=== PATIENT | female | born 1995 | race Caucasian/White ===

== ENCOUNTER 2017-10-30 20:55 | Emergency (ER) | payer OTHER ==
[2017-10-30 21:03] VITALS: TEMP 97.7
[2017-10-30] MEDS ORDERED: ONDANSETRON 4 MG/2 ML VIAL IVP ONE (21:28)
[2017-10-30] MEDS ORDERED: NS 1,000 ML IV ONE (21:28)
--- NOTE | 2017-10-30 21:30 | EDPHY ---
H & P Stated Complaint: EPIGASTRIC PAIN/VOMITING X 1 Time Seen by Provider: 10/30/17 21:11 HPI/ROS: CHIEF COMPLAINT: Epigastric pain and vomiting HISTORY OF PRESENT ILLNESS: Patient presents to the emergency department with complaints of epigastric pain and vomiting. She was emergency department with her boyfriend who has had several weeks of nausea and vomiting. She had felt well prior to her arrival here. She developed 1 episode of vomiting and epigastric pain. The patient denies any history of abdominal surgery. She denies significant past medical history. She did recently have a mole removed from her breast. REVIEW OF SYSTEMS: A comprehensive 10 point review of systems is otherwise negative aside from elements mentioned in the history of present illness. Source: Patient Exam Limitations: No limitations - Personal History LMP (Females 10-55): 22-28 Days Ago Current Tetanus Diphtheria and Acellular Pertussis (TDAP): Yes Tetanus Vaccine Date: LESS THAN 10 YEARS - Medical/Surgical History Hx Asthma: Yes Hx Chronic Respiratory Disease: No Hx Diabetes: No Hx Cardiac Disease: No Hx Renal Disease: No Hx Cirrhosis: No Hx Alcoholism: No Hx HIV/AIDS: No Hx Splenectomy or Spleen Trauma: No Other PMH: MOLE REMOVAL, SEPTOPLASTY, RHINOPLASTY, TONSIL/ADENOID, LABRIUM REPAIR - Social History Smoking Status: Never smoked - Physical Exam Exam: General Appearance: Alert, no acute distress Eyes: Pupils equal and round no pallor or injection ENT, Mouth: Mucous membranes moist Respiratory: There are no retractions, lungs are clear to auscultation Cardiovascular: Regular rate and rhythm Gastrointestinal: Minimal epigastric tenderness Neurological: A&O, normal motor function, normal sensory exam, normal cranial nerves Skin: Warm and dry, no rashes Musculoskeletal: Neck is supple nontender Extremities: symmetrical, full range of motion Constitutional: Initial Vital Signs Temperature (C) 36.5 C 10/30/17 20:59 Heart Rate 92 10/30/17 20:59 Respiratory Rate 16 10/30/17 20:59 Blood Pressure 124/84 H 10/30/17 20:59 O2 Sat (%) 97 10/30/17 20:59 O2 Delivery Mode Room Air Allergies/Adverse Reactions: tree nut [Nuts] Allergy (Verified 10/30/17 20:58) Home Medications: Medication Instructions Recorded Loestrin 21 1-20 Tablet 10/30/17 Ondansetron Odt [Zofran Odt] 4 mg PO Q4PRN PRN #20 tab 10/30/17 Medical Decision Making ED Course/Re-evaluation: The patient presents the ED with acute epigastric pain, nausea and vomiting. The patient had minimal epigastric tenderness on exam. She had an IV damage. She received a L normal saline 4 mg of IV Zofran for dehydration. The patient had screening laboratories sent. She has a slight leukocytosis presumably secondary to her vomiting. The patient has no evidence of a pancreatitis or hepatitis. I re-evaluated the patient at 10:40 p.m.. Her vomiting has resolved. I find her abdominal examination to be benign without evidence of acute appendicitis. I feel it is reasonable to discharge her with Zofran and instructions to return to see us in 8-12 hours for any ongoing symptoms. - Data Points Laboratory Results: Laboratory Results 10/30/17 21:43 10/30/17 21:43 10/30/17 10/30/17 10/30/17 21:43 21:43 21:43 WBC RBC Hgb Hct MCV MCH MCHC RDW Plt Count MPV Neut % (Auto) Lymph % (Auto) [place] % (Auto) Eos % (Auto) Baso % (Auto) Nucleat RBC Rel Count Absolute Neuts (auto) Absolute Lymphs (auto) Absolute Monos (auto) Absolute Eos (auto) Absolute Basos (auto) Absolute Nucleated RBC Immature Gran % Immature Gran # Carboxyhemoglobin 1.7 % H % (0-1.5) Sodium 141 mEq/L mEq/L (135-145) Potassium 3.9 mEq/L mEq/L (3.5-5.2) Chloride 103 mEq/L mEq/L (97-110) Carbon Dioxide 19 mEq/l L mEq/l (22-31) Anion Gap 19 mEq/L H mEq/L (8-16) BUN 16 mg/dL mg/dL (7-23) Creatinine 0.8 mg/dL mg/dL (0.6-1.0) Estimated GFR > 60 Glucose 81 mg/dL mg/dL (70-100) Calcium 10.2 mg/dL mg/dL (8.5-10.4) Total Bilirubin 0.6 mg/dL mg/dL (0.1-1.4) Conjugated Bilirubin 0.3 mg/dL mg/dL (0.0-0.5) Unconjugated Bilirubin 0.3 mg/dL mg/dL (0.0-1.1) AST 28 IU/L IU/L (14-46) ALT 27 IU/L IU/L (9-52) Alkaline Phosphatase 60 IU/L IU/L (38-126) Total Protein 8.0 g/dL g/dL (6.3-8.2) Albumin 4.7 g/dL g/dL (3.5-5.0) Lipase 58 IU/L IU/L (23-300) Beta HCG, Qual NEGATIVE 10/30/17 21:43 WBC 16.25 10^3/uL H 10^3/uL (3.80-9.50) RBC 4.80 10^6/uL 10^6/uL (4.18-5.33) Hgb 15.1 g/dL g/dL (12.6-16.3) Hct 43.5 % % (38.0-47.0) MCV 90.6 fL fL (81.5-99.8) MCH 31.5 pg pg (27.9-34.1) MCHC 34.7 g/dL g/dL (32.4-36.7) RDW 12.8 % % (11.5-15.2) Plt Count 300 10^3/uL 10^3/uL (150-400) MPV 9.8 fL fL (8.7-11.7) Neut % (Auto) 72.8 % % (39.3-74.2) Lymph % (Auto) 20.3 % % (15.0-45.0) [place] % (Auto) 3.9 % L % (4.5-13.0) Eos % (Auto) 2.2 % % (0.6-7.6) Baso % (Auto) 0.4 % % (0.3-1.7) Nucleat RBC Rel Count 0.0 % % (0.0-0.2) Absolute Neuts (auto) 11.82 10^3/uL H 10^3/uL (1.70-6.50) Absolute Lymphs (auto) 3.30 10^3/uL H 10^3/uL (1.00-3.00) Absolute Monos (auto) 0.63 10^3/uL 10^3/uL (0.30-0.80) Absolute Eos (auto) 0.36 10^3/uL 10^3/uL (0.03-0.40) Absolute Basos (auto) 0.07 10^3/uL 10^3/uL (0.02-0.10) Absolute Nucleated RBC 0.00 10^3/uL 10^3/uL (0-0.01) Immature Gran % 0.4 % % (0.0-1.1) Immature Gran # 0.07 10^3/uL 10^3/uL (0.00-0.10) Carboxyhemoglobin Sodium Potassium Chloride Carbon Dioxide Anion Gap BUN Creatinine Estimated GFR Glucose Calcium Total Bilirubin Conjugated Bilirubin Unconjugated Bilirubin AST ALT Alkaline Phosphatase Total Protein Albumin Lipase Beta HCG, Qual Medications Given: Discontinued Medications Sodium Chloride (Ns) 1,000 mls @ 0 mls/hr IV EDNOW ONE; Wide Open PRN Reason: Protocol Stop: 10/30/17 21:29 Last Admin: 10/30/17 21:40 Dose: 1,000 mls Ondansetron HCl (Zofran) 4 mg IVP EDNOW ONE Stop: 10/30/17 21:29 Last Admin: 10/30/17 21:39 Dose: 4 mg Departure - Departure Disposition: Home, Routine, Self-Care Clinical Impression: Vomiting Condition: Good Instructions: Acute Nausea and Vomiting (ED) Additional Instructions: Sometimes we are unable to diagnose an obvious cause of abdominal pain in the Emergency Department. Based upon our evaluation today, we see no obvious explanation for your pain. Because more serious conditions can be difficult to diagnose early in the course of their presentation, we ask that you return to the Emergency Department in 8-12 hours for a recheck if you are still having pain. This is necessary to exclude the development of a more serious condition such as appendicitis or other intra-abdominal emergency. In the event your pain markedly increases before that time or you develop intractable vomiting or fever return to the Emergency Department immediately. Zofran as needed for nausea Referrals: DR LARRY [Other] - As per Instructions
[2017-10-30 21:49] LABS: PLATELET COUNT 300 10^3/uL (150-400)
[2017-10-30] MEDS ORDERED: ONDANSETRON 4MG PREPACK#2 BTL TAKEHOME ONE (22:41)
[2017-10-30 22:50] VITALS: BP 117/76; PULSE 93; RESP 18; O2SAT 100
[2017-10-31] MEDS ORDERED: ONDANSETRON 4MG PREPACK#2 BTL TAKEHOME ONE (00:55)
== END 2017-10-30 22:49 | disposition home or self-care (01) ==
DX: R11.10 Vomiting, unspecified (principal); E86.9 Volume depletion, unspecified; J45.909 Unspecified asthma, uncomplicated
CPT/HCPCS: 96374; J2405

== ENCOUNTER 2017-12-10 14:57 | Emergency (ER) | payer OTHER ==
[2017-12-10 15:02] VITALS: TEMP 98.2
[2017-12-10] MEDS ORDERED: NS 1,000 ML IV ONE (15:14)
[2017-12-10] MEDS ORDERED: RANITIDINE 50 MG/2 ML VIAL IVP ONE (15:14)
[2017-12-10] MEDS ORDERED: methylPREDNISolone SOD SUCC 125 MG/2 ML VIAL IVP ONE (15:14)
--- NOTE | 2017-12-10 15:17 | EDPHY ---
H & P Stated Complaint: allergic rx Time Seen by Provider: 12/10/17 15:07 HPI/ROS: CHIEF COMPLAINT: Allergic reaction HISTORY OF PRESENT ILLNESS: Patient is a 22-year-old female with multiple allergies including several nuts, mold and dust. She states that she was taking a shower when she became itchy and noticed some swelling of her lips and itchiness in her throat. She took 3 tablets of Benadryl an used her inhaler which her warehouse laborer prescribed her because she tends to wheeze when she has anaphylaxis. She did not use her EpiPen. She came immediately to the emergency department. At triage she was noticed to have red skin and possibly some slight swelling of her lips. She was given Solu-Medrol, epinephrine and Zantac by nursing protocol. She states that she is now beginning to feel better. She denies having any wheezing today. No nausea vomiting or diarrhea. REVIEW OF SYSTEMS: Constitutional: denies: chills, fever, recent illness, recent injury EENTM: See HPI denies: blurred vision, double vision, nose congestion Respiratory: See HPI denies: cough, shortness of breath Cardiac: denies: chest pain, irregular heart rate, lightheadedness, palpitations Gastrointestinal/Abdominal: denies: abdominal pain, diarrhea, nausea, vomiting, blood streaked stools Genitourinary: denies: dysuria, frequency, hematuria, pain Musculoskeletal: denies: joint pain, muscle pain Skin: See HPI Neurological: denies: headache, numbness, paresthesia, tingling, dizziness, weakness Hematologic/Lymphatic: denies: blood clots, easy bleeding, easy bruising Immunologic/allergic: denies: HIV/AIDS, transplant EXAM: GENERAL: Well-appearing, well-nourished and in no acute distress. HEAD: Atraumatic, normocephalic. EYES: Pupils equal round and reactive to light, extraocular movements intact, sclera anicteric, conjunctiva are normal. ENT: No obvious swelling of oropharynx. TMs normal, nares patent, oropharynx clear without exudates. Moist mucous membranes. NECK: Normal range of motion, supple without lymphadenopathy or JVD. LUNGS: Breath sounds clear to auscultation bilaterally and equal. No wheezes rales or rhonchi. HEART: Regular rate and rhythm without murmurs, rubs or gallops. ABDOMEN: Soft, nontender, normoactive bowel sounds. No guarding, no rebound. No masses appreciated. BACK: No CVA tenderness, no spinal tenderness, step-offs or deformities EXTREMITIES: Normal range of motion, no pitting or edema. No clubbing or cyanosis. NEUROLOGICAL: Cranial nerves II through XII grossly intact. Normal speech, normal gait. 5/5 strength, normal movement in all extremities, normal sensation PSYCH: Normal mood, normal affect. SKIN: The sandpapery red skin to chest and arms. No obvious urticaria. Source: Patient Exam Limitations: No limitations - Personal History LMP (Females 10-55): Now Current Tetanus/Diphtheria Vaccine: Yes Tetanus Vaccine Date: LESS THAN 10 YEARS - Medical/Surgical History Hx Asthma: Yes Hx Chronic Respiratory Disease: No Hx Diabetes: No Hx Cardiac Disease: No Hx Renal Disease: No Hx Cirrhosis: No Hx Alcoholism: No Hx HIV/AIDS: No Hx Splenectomy or Spleen Trauma: No Other PMH: Multiple anaphylactic allergies, MOLE REMOVAL, SEPTOPLASTY, RHINOPLASTY, TONSIL/ADENOID, LABRIUM REPAIR - Family History Significant Family History: No pertinent family hx - Social History Smoking Status: Never smoked Alcohol Use: Sober Drug Use: None Constitutional: Initial Vital Signs Temperature (C) 36.8 C 12/10/17 15:00 Heart Rate 133 H 12/10/17 15:00 Respiratory Rate 18 12/10/17 15:00 Blood Pressure 135/82 H 12/10/17 15:00 O2 Sat (%) 96 12/10/17 15:00 O2 Delivery Mode Room Air Allergies/Adverse Reactions: tree nut [Nuts] Allergy (Verified 10/30/17 20:58) Home Medications: Medication Instructions Recorded Loestrin 21 1-20 Tablet 10/30/17 Ondansetron Odt [Zofran Odt] 4 mg PO Q4PRN PRN #20 tab 10/30/17 ALBUTEROL SULFATE 12/10/17 Nexplanon 12/10/17 Propranolol Sr 12/10/17 predniSONE 60 mg PO DAILY #9 tab 12/10/17 Medical Decision Making ED Course/Re-evaluation: 3:30 p.m. the patient is doing much better. She is asking to take the oxygen out of her nose. 4:30 p.m. the patient is doing completely better. She states that she feels normal. She would like to go. I would like to watch her for least another 0.5 hr. She agrees to this. She will continue taking Benadryl at home. I will also give her a prescription for prednisone although she states she usually does not needed.. Differential Diagnosis: Partial list of the Differential diagnosis considered include but were not limited to; anaphylaxis, urticaria, anxiety and although unlikely based on the history and physical exam, I also considered sepsis, cellulitis, Ortega Matteo 's. I discussed these differential diagnoses and the plan with the patient as well as the usual and expected course. The patient understands that the diagnosis is provisional and that in medicine we are not always correct and that further workup is often warranted. Usual and customary warnings were given. All of the patient's questions were answered. The patient was instructed to return to the emergency department should the symptoms at all worsen or return, otherwise to followup with the physician as we discussed. - Data Points Medications Given: Discontinued Medications Epinephrine HCl (Epinephrine) 0.3 mg IM EDNOW ONE Stop: 12/10/17 15:15 Last Admin: 12/10/17 15:18 Dose: 0.3 mg Sodium Chloride (Ns) 1,000 mls @ 0 mls/hr IV ONCE ONE; Wide Open PRN Reason: Protocol Stop: 12/10/17 15:15 Last Admin: 12/10/17 15:18 Dose: 1,000 mls Methylprednisolone Sodium Succinate (Solu-Medrol) 125 mg IVP EDNOW ONE Stop: 12/10/17 15:15 Last Admin: 12/10/17 15:18 Dose: 125 mg Ranitidine HCl (Zantac) 50 mg IVP EDNOW ONE Stop: 12/10/17 15:15 Last Admin: 12/10/17 15:18 Dose: 50 mg Departure - Departure Disposition: Home, Routine, Self-Care Clinical Impression: Acute anaphylaxis Qualifiers: Encounter type: initial encounter Qualified Code(s): T78.2XXA - Anaphylactic shock, unspecified, initial encounter Condition: Fair Instructions: Prednisone (By mouth), Anaphylaxis (ED) Additional Instructions: come back to the emergency department for any worsening symptoms take prednisone as needed for residual symptoms Referrals: DR LARRY [Other] - As per Instructions Prescriptions: predniSONE 60 mg PO DAILY #9 tab
[2017-12-10 16:42] VITALS: RESP 16
[2017-12-10 16:51] VITALS: BP 124/80; PULSE 111; O2SAT 100
== END 2017-12-10 16:57 | disposition home or self-care (01) ==
DX: T78.2XXA Anaphylactic shock, unspecified, initial encounter (principal); J45.909 Unspecified asthma, uncomplicated; E86.9 Volume depletion, unspecified
CPT/HCPCS: 96374

== ENCOUNTER 2018-01-02 17:42 | Emergency (ER) | payer OTHER ==
[2018-01-02] MEDS ORDERED: methylPREDNISolone SOD SUCC 125 MG/2 ML VIAL ONE (17:46)
[2018-01-02] MEDS ORDERED: RANITIDINE 50 MG/2 ML VIAL ONE (17:47)
[2018-01-02] MEDS ORDERED: predniSONE 20 MG TAB ONE (17:47)
[2018-01-02] MEDS ORDERED: predniSONE 20 MG TAB PO ONE (17:51)
[2018-01-02] MEDS ORDERED: RANITIDINE 50 MG/2 ML VIAL IVP ONE (17:52)
[2018-01-02] MEDS ORDERED: EPINEPHrine 1 MG/10 ML SYR IVP ONE (17:53)
--- NOTE | 2018-01-02 17:55 | CPEKG ---
Heart Rate: 126 RR Interval: 476 P-R Interval: 136 QRSD Interval: 102 QT Interval: 316 QTC Interval: 458 P [place]: 91 QRS [place]: 84 T Wave [place]: -1 EKG Severity - ABNORMAL ECG - EKG Impression: SINUS TACHYCARDIA EKG Impression: MARYAN, CONSIDER BIATRIAL ABNORMALITIES EKG Impression: LEFT VENTRICULAR HYPERTROPHY EKG Impression: INFERIOR Q WAVES, PROBABLY NORMAL VARIATION Electronically Signed By: Soraya Ruffin 02-Jan-2018 21:08:41
[2018-01-02 18:36] VITALS: TEMP 98.6
--- NOTE | 2018-01-02 20:38 | EDPHY ---
H & P Stated Complaint: allergic reaction Time Seen by Provider: 01/02/18 17:55 HPI/ROS: Chief complaint: Allergic reaction History of present illness: This is a 22-year-old female with a history of severe allergies who presents to the emergency department reporting an allergic reaction. She states people around her were eating nuts and she believes she was exposed to one. She does have a known history of allergies to nuts. She has started to noticed some irritation of swelling in the throat. She did take 75 mg of Benadryl. She did not use or epinephrine pen. She was brought here. She denies associated signs or symptoms including no fevers, no cold symptoms. Review of systems: A 10 point review of systems was obtained and other than described above was negative - Personal History LMP (Females 10-55): Extended Cycle BCP/Inj Current Tetanus/Diphtheria Vaccine: Yes Tetanus Vaccine Date: LESS THAN 10 YEARS - Medical/Surgical History Hx Asthma: Yes Hx Chronic Respiratory Disease: No Hx Diabetes: No Hx Cardiac Disease: No Hx Renal Disease: No Hx Cirrhosis: No Hx Alcoholism: No Hx HIV/AIDS: No Hx Splenectomy or Spleen Trauma: No Other PMH: Multiple anaphylactic allergies, MOLE REMOVAL, SEPTOPLASTY, RHINOPLASTY, TONSIL/ADENOID, LABRIUM REPAIRconnective tissuedisease - Social History Smoking Status: Never smoked - Physical Exam Exam: General Appearance: Alert, extremely anxious. Eyes: Pupils equal and round no pallor or injection. ENT, Mouth: Mucous membranes moist. Mild erythema and edema to the oropharynx. Respiratory: No dyspnea. There are no retractions, lungs are clear to auscultation. Cardiovascular: Regular rate and rhythm. Gastrointestinal: Abdomen is soft and non tender, no masses, bowel sounds normal. Neurological: Alert and oriented x4. Strength and sensation intact and symmetrical. Skin: Warm and dry, no rashes. Musculoskeletal: Neck is supple non tender. Extremities are symmetrical, full range of motion. Psychiatric: Patient is oriented X 3, there is no agitation. Constitutional: Initial Vital Signs Temperature (C) 37.2 C 01/02/18 17:48 Heart Rate 165 H 01/02/18 17:48 Respiratory Rate 26 H 01/02/18 17:48 Blood Pressure 144/78 H 01/02/18 17:48 O2 Sat (%) 93 01/02/18 17:48 O2 Delivery Mode Room Air Allergies/Adverse Reactions: tree nut [Nuts] Allergy (Verified 01/02/18 17:47) Home Medications: Medication Instructions Recorded ALBUTEROL SULFATE 12/10/17 Nexplanon 12/10/17 Propranolol Sr 12/10/17 EPINEPHrine [Epipen 0.3 MG] 0.3 mg IM ONCE #2 syr 01/02/18 predniSONE 40 mg PO DAILY 4 Days tablet 01/02/18 Medical Decision Making ED Course/Re-evaluation: Patient seen under the supervision of my secondary supervising physician Dr. Soraya Ruffin. Patient presents for an allergic reaction. She does have evidence of swelling of the throat. She is given epinephrine. An IV is started and she is given steroids and Zantac as well as IV fluid. She has already taken high doses of Benadryl. She is observed in the emergency room for multiple hours with complete resolution of symptoms. She is comfortable being discharged home. Home care is discussed. She is asked to follow up with her film spooler next week for recheck. Return precautions are given. Patient voiced understanding and agreement with plan. Differential Diagnosis: Included but not limited to allergic reaction, anaphylaxis, anxiety - Data Points Medications Given: Discontinued Medications Epinephrine HCl (Epinephrine) 0.3 mg IVP EDNOW ONE Stop: 01/02/18 17:54 Last Admin: 01/02/18 17:55 Dose: 0.3 mg Prednisone (Prednisone) 60 mg PO EDNOW ONE Stop: 01/02/18 17:52 Last Admin: 01/02/18 17:54 Dose: 60 mg Ranitidine HCl (Zantac) 50 mg IVP EDNOW ONE Stop: 01/02/18 17:53 Last Admin: 01/02/18 17:54 Dose: 50 mg Departure - Departure Disposition: Home, Routine, Self-Care Clinical Impression: Acute anaphylaxis Qualifiers: Encounter type: initial encounter Qualified Code(s): T78.2XXA - Anaphylactic shock, unspecified, initial encounter Condition: Good Instructions: Anaphylaxis (ED) Additional Instructions: Follow-up with your film spooler on Thursday for recheck If symptoms worsen or new symptoms develop return to the emergency room for recheck Referrals: Patient,NotPresent [Primary Care Provider] - As per Instructions [facility],. [Clinic] - As per Instructions Prescriptions: EPINEPHrine [Epipen 0.3 MG] 0.3 mg IM ONCE #2 syr predniSONE 40 mg PO DAILY 4 Days tablet
[2018-01-02 21:05] VITALS: BP 115/74; PULSE 88; RESP 18; O2SAT 96
== END 2018-01-02 21:05 | disposition home or self-care (01) ==
DX: T78.2XXA Anaphylactic shock, unspecified, initial encounter (principal); J45.909 Unspecified asthma, uncomplicated
CPT/HCPCS: 96374; J0171; J2780; J2930; J7512

== ENCOUNTER 2018-02-09 19:49 | Emergency (ER) | payer OTHER ==
[2018-02-09] MEDS ORDERED: methylPREDNISolone SOD SUCC 125 MG/2 ML VIAL ONE (19:52)
[2018-02-09] MEDS ORDERED: FAMOTIDINE 20 MG/2 ML SDV ONE (19:52)
[2018-02-09] MEDS ORDERED: methylPREDNISolone SOD SUCC 125 MG/2 ML VIAL IVP ONE (20:01)
[2018-02-09] MEDS ORDERED: ALBUTEROL 3 ML DEYVIAL ONE (20:03)
[2018-02-09] MEDS ORDERED: NS 1,000 ML IV ONE (20:05)
[2018-02-09] MEDS ORDERED: ALBUTEROL 3 ML DEYVIAL IH ONE ×2 (20:05→23:47)
[2018-02-09] MEDS ORDERED: FAMOTIDINE 20 MG in NS 100 ML IV ONE (20:07)
--- NOTE | 2018-02-09 20:09 | EDPHY ---
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 She has been seen in the ED approximately every month for an allergic reaction over the last several months. She was at the grocery store today when she was exposed to cashews or tree nuts through the air. She reports a rash, wheezing, congestion, and throat tightness. She denies nausea, vomiting, any other associated symptoms. She took 50mg of Benadryl and two doses of her rescue inhaler prior to her arrival at the ED. She did not take her EpiPen this episode. She takes a nonsedating antihistamine daily. She is on Nexplanon and does not have menses. No fever, chills, chest pain, palpitations, vomiting, diarrhea, urinary complaints, headache, lightheadedness. REVIEW OF SYSTEMS: Aside from elements discussed in the HPI, a comprehensive 10-point review of systems was reviewed and is negative. 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 Diffuse erythema on the face and neck. HEENT: Atraumatic. Eyes: Edema of the eyelids. No icterus, no injection. Mouth: Moist mucous membranes. Angioedema of the uvula. No lesions. Neck: supple with no adenopathy. LUNGS: Breath sounds diminished with wheezes. No rhonchi or rales. CARDIAC: Regular rate and rhythm, no rubs, murmurs or gallops. ABDOMEN: Soft, nontender, nondistended, bowel sounds normal. BACK: No CVA tenderness. Small hives along back. EXTREMITIES: No trauma. No edema. Range of motion is normal throughout. NEURO: Alert and oriented, grossly nonfocal. SKIN: Warm and dry, no rash. PSYCHIATRIC: Normal mentation, no agitation. ED Course: The patient presents with an allergic reaction. She has been seen in the ED on a number of occasions recently for an allergic reaction to tree nuts. She took 50 mg Benadryl before arriving. On exam, she has hives on her back, angioedema to the uvula, diffuse wheezes, and swollen eye lids. She was administered epinephrine, Solumedol, Pepcid and albuterol. I discussed working with her golf teacher to decrease the frequency of her allergic reactions. Patient improved rapidly. On re-examination the erythroderma has cleared, eyelids are no wonder swollen, wheezes have resolved. She looks much improved. Patient was discharged with instructions regarding the future use of the EpiPen , a prescription for albuterol meter dose inhaler to use as directed, short course of prednisone, the importance of Benadryl, and a short course of Pepcid. She understands the discharge instructions. She was discharged with a strawhat sizer. MDM: Differential diagnoses for the patient's symptom complex was considered including but not limited to allergic reaction, urticaria, anaphylaxis, hereditary angioedema, drug-induced reaction. - Data Points Medications Given: Discontinued Medications Albuterol (Proventil Neb) 3 ml IH EDNOW ONE Stop: 02/09/18 20:06 Last Admin: 02/09/18 20:08 Dose: 3 ml Diphenhydramine HCl (Benadryl Injection) 50 mg IVP EDNOW ONE Stop: 02/09/18 20:06 Last Admin: 02/09/18 20:09 Dose: 25 mg Epinephrine HCl (Epinephrine) 0.3 mg IM EDNOW ONE Stop: 02/09/18 20:06 Last Admin: 02/09/18 20:09 Dose: 0.3 mg Sodium Chloride (Ns) 1,000 mls @ 0 mls/hr IV EDNOW ONE; Wide Open PRN Reason: Protocol Stop: 02/09/18 20:06 Last Admin: 02/09/18 20:09 Dose: 1,000 mls Famotidine 20 mg/ Sodium (Chloride) 102 mls @ 408 mls/hr IV EDNOW ONE Stop: 02/09/18 20:21 Last Admin: 02/09/18 20:08 Dose: 20 mls Methylprednisolone Sodium Succinate (Solu-Medrol) 125 mg IVP EDNOW ONE Stop: 02/09/18 20:02 Last Admin: 02/09/18 20:02 Dose: 125 mg General Time Seen by Provider: 02/09/18 19:54 Initial Vital Signs: Initial Vital Signs Temperature (C) 37.1 C 02/09/18 19:50 Heart Rate 102 H 02/09/18 19:50 Respiratory Rate 20 02/09/18 19:50 Blood Pressure 136/79 H 02/09/18 19:50 O2 Sat (%) 98 02/09/18 19:50 O2 Delivery Mode Nasal Cannula O2 (L/minute) 2 Allergies/Adverse Reactions: tree nut [Nuts] Allergy (Verified 02/09/18 19:56) Home Medications: Medication Instructions Recorded ALBUTEROL SULFATE 12/10/17 Nexplanon 12/10/17 Propranolol Sr 12/10/17 EPINEPHrine [Epipen 0.3 MG] 0.3 mg IM ONCE #2 syr 01/02/18 predniSONE 40 mg PO DAILY 4 Days tablet 01/02/18 Albuterol [Proventil Inhaler HFA 1 - 2 puffs IH Q4H #1 mdi 02/09/18 (*)] EPINEPHrine [Epipen 0.3 MG] 0.3 mg IM ONCE #2 syr 02/09/18 Famotidine [Pepcid] 40 mg PO DAILY #30 tablet 02/09/18 predniSONE 60 mg PO DAILY #9 tab 02/09/18 Departure - Departure Disposition: Home, Routine, Self-Care Clinical Impression: Allergic reaction Qualifiers: Encounter type: initial encounter Qualified Code(s): T78.40XA - Allergy, unspecified, initial encounter Acute anaphylaxis Qualifiers: Encounter type: initial encounter Qualified Code(s): T78.2XXA - Anaphylactic shock, unspecified, initial encounter Condition: Good Instructions: Anaphylaxis (ED), General Allergic Reaction (ED) Additional Instructions: There are 4 medications used to treat allergic reactions. #1. The first is epinephrine. Please use the epinephrine pen in the future as needed if you develop acute swelling, throat tightness, shortness of breath, or severe rash in the setting of allergic reaction. #2. The second type of medication are antihistamines. The most common antihistamine is diphenhydramine (Benadryl). Dose is 25-50 mg every 6-8 hours as needed for itching and rash. Diphenhydramine can be sedating. Another type of antihistamine is loratadine (Claritin). This is taken once a day. It is not sedating. Repeat doses of antihistamines may be needed as the hives will come and go over the next several days. You may notice that the hives are worse after exposure to heat, warm showers, or exertion. #3. The third medication is Pepcid which is another type of an antihistamine. Dose is 40 mg once a day for 3 days. This should be taken on a regular basis. #4. The fourth medication is prednisone, which is a steroid. The dose is 60 mg a day x3 doses. Please take this as instructed. #5. Please use the albuterol meter dose inhaler every 3-4 hours as needed for shortness of breath and wheezing. #6. Return to emergency department or seek care urgently if severe shortness of breath develops, swelling of the lips, eyelids, or sensation that the throat is closing. Please follow up with your primary care physician as needed. I would also recommend close follow-up with her golf teacher. Consideration for suppressive therapy should be discussed. Referrals: Saul Evangelista MD [Medical Doctor] - As per Instructions Prescriptions: Albuterol [Proventil Inhaler HFA (*)] 1 - 2 puffs IH Q4H #1 mdi EPINEPHrine [Epipen 0.3 MG] 0.3 mg IM ONCE #2 syr Famotidine [Pepcid] 40 mg PO DAILY #30 tablet predniSONE 60 mg PO DAILY #9 tab Report Scribed for: Denise Townsend Report Scribed by: Thais Camargo Date of Report: 02/09/18 Time of Report: 20:13 Physician Review and Approval Statement: Portions of this note were transcribed by a medical insurance clerk. I personally performed a history, physical exam, medical decision making, and confirmed accuracy of information the transcribed note.
[2018-02-09 21:28] VITALS: BP 119/63
== END 2018-02-09 21:31 | disposition home or self-care (01) ==
DX: T78.05XA Anaphylactic reaction due to tree nuts and seeds, initial encounter (principal); E86.9 Volume depletion, unspecified
CPT/HCPCS: 96374; J0171; J1200; J2930; J7613